=== PATIENT | male | born 1950 | race African-American/Black ===

== ENCOUNTER 2018-06-06 16:38 | Inpatient (IN) | payer MEDICARE, MEDICAID ==
[~2018-06-06] VITALS: Ht 180.3 cm; Wt 68.0 kg
[~2018-06-06 16:38] MED LIST: CARB300C6 PO; DILANTIN; LOPE2TAB26 PO; NAPR-679 PO; PHEN100C12 PO
[2018-06-06 17:51] LABS: BASOPHILS % 0.7 % (0.0-2.0); EOSINOPHILS % 4.5 % (0.0-5.0); HEMATOCRIT. 48.1 % (42.0-52.0); HEMOGLOBIN. 16.4 g/dL (14.0-18.0); LYMPHOCYTES % 19.2 % (20.0-50.0); MEAN CORPUSCULAR HEMOGLOBIN 32.3 pg (28.0-32.0); MEAN CORPUSCULAR VOLUME 94.6 fL (80.0-94.0); MEAN PLATELET VOLUME 8.9 fl (7.4-10.4); MONOCYTES % 12.3 % (2.0-8.0); NEUTROPHILS % 63.3 % (40.0-76.0); PLATELET 207 x1000/uL (130-400); RED BLOOD CELL COUNT 5.09 mill/uL (4.7-6.1); RED CELL DISTRIBUTION WIDTH 13.4 % (11.6-14.6)
[2018-06-06 17:57] LABS: CHLORIDE 108 mEq/L (98-107)
[2018-06-06] MEDS ORDERED: ASPIRIN 81MG TABLET PO ONE (18:30)
[2018-06-06] MEDS ORDERED: ENOXAPARIN 80MG/0.8ML SYR SUBCUT ONE (18:30)
[2018-06-06] MEDS ORDERED: CLONIDINE 0.1MG TABLET PO PRN (20:15)
[2018-06-06] MEDS ORDERED: DOCUSATE SODIUM 100MG CAPSULE PO PRN (20:15)
[2018-06-06] MEDS ORDERED: MAGNESIUM/ALUMINUM HYDROXIDE/SIMETHICONE 30ML UDC PO PRN (20:15)
[2018-06-06] MEDS ORDERED: IPRATROPIUM/ALBUTEROL 0.5-3(2.5)MG/3ML NEB INH PRN (20:15)
[2018-06-06] MEDS ORDERED: ONDANSETRON HCL 4MG/2ML INJ IV PRN (20:15)
[2018-06-06] MEDS ORDERED: ACETAMINOPHEN 325MG TABLET PO PRN (20:15)
[2018-06-06 23:46] VITALS: BP 130/70
[2018-06-07 01:05] LABS: CHLORIDE 107 mEq/L (98-107)
[2018-06-07 01:16] LABS: CREATINE KINASE 235 IU/L (39-308)
[2018-06-07 01:18] LABS: CREATINE KINASE MB FRACTION 4.7 ng/mL (0.5-3.6)
[2018-06-07 01:27] LABS: CARBAMAZEPINE < 0.5 ug/mL (4-12)
[2018-06-07 05:39] LABS: BASOPHILS % 1.2 % (0.0-2.0); HEMATOCRIT. 46.5 % (42.0-52.0); MEAN CORPUSCULAR HEMOGLOBIN 32.5 pg (28.0-32.0); MEAN CORPUSCULAR VOLUME 94.5 fL (80.0-94.0); MEAN PLATELET VOLUME 9.4 fl (7.4-10.4); MONOCYTES % 12.6 % (2.0-8.0); NEUTROPHILS % 51.2 % (40.0-76.0); PLATELET 186 x1000/uL (130-400); RED BLOOD CELL COUNT 4.92 mill/uL (4.7-6.1); RED CELL DISTRIBUTION WIDTH 13.5 % (11.6-14.6)
[2018-06-07] MEDS: ASPIRIN 81MG TABLET PO SCH (08:11)
[2018-06-07 08:45] LABS: CREATINE KINASE 204 IU/L (39-308); HDL CHOLESTEROL 57 mg/dL (40-59)
[2018-06-07 08:46] LABS: LDL CHOLESTEROL 88 mg/dL (5-100)
[2018-06-07 08:51] LABS: CREATINE KINASE MB FRACTION 3.7 ng/mL (0.5-3.6)
[2018-06-07 12:11] VITALS: BP 124/78
[2018-06-07] MEDS ORDERED: PHENYTOIN SODIUM 100MG/2ML VIAL IV ONE (12:30)
[2018-06-07 12:43] LABS: METHADONE URINE SCREEN NEGATIVE (NEGATIVE); OPIATES URINE SCREEN NEGATIVE (NEGATIVE)
[2018-06-07 12:44] LABS: *AMPHETAMINES SCREEN URINE NEGATIVE (NEGATIVE); *BARBITURATES SCREEN URINE NEGATIVE (NEGATIVE); *BENZODIAZEPINES SCREEN URINE NEGATIVE (NEGATIVE); *COCAINE SCREEN URINE NEGATIVE (NEGATIVE); CANNABINOID URINE SCREEN PRESUMTIVE POSITIVE (NEGATIVE); PHENCYCLIDINE URINE SCREEN NEGATIVE (NEGATIVE)
[2018-06-07] MEDS: CARBAMAZEPINE 200MG TABLET PO SCH ×2 (13:04→20:43)
[2018-06-07] MEDS ORDERED: PHENYTOIN SODIUM 1000MG in SODIUM CHLORIDE 0.9% 100ML IV SCH (14:00)
[2018-06-07 16:14] VITALS: BP 135/88
[2018-06-07 20:00] VITALS: BP 129/73
[2018-06-07] MEDS: DILTIAZEM HCL 30MG TABLET PO SCH (21:20)
[2018-06-07] MEDS ORDERED: PHENYTOIN SODIUM EXTENDED 100MG CAPSULE PO NR (22:00)
[2018-06-08 00:01] VITALS: BP 110/74
[2018-06-08 04:00] VITALS: BP 117/71
[2018-06-08] MEDS: DILTIAZEM HCL 30MG TABLET PO SCH (05:48)
[2018-06-08 06:46] LABS: EOSINOPHILS % 4.5 % (0.0-5.0); HEMATOCRIT. 47.5 % (42.0-52.0); HEMOGLOBIN. 16.4 g/dL (14.0-18.0); LYMPHOCYTES % 18.5 % (20.0-50.0); MEAN CORPUSCULAR HEMOGLOBIN 32.6 pg (28.0-32.0); MEAN CORPUSCULAR VOLUME 94.5 fL (80.0-94.0); MEAN PLATELET VOLUME 9.5 fl (7.4-10.4); PLATELET 193 x1000/uL (130-400); RED BLOOD CELL COUNT 5.03 mill/uL (4.7-6.1); RED CELL DISTRIBUTION WIDTH 13.3 % (11.6-14.6)
[2018-06-08 07:39] LABS: CHLORIDE 109 mEq/L (98-107)
[2018-06-08 08:00] VITALS: BP 122/79
[2018-06-08] MEDS: CARBAMAZEPINE 200MG TABLET PO SCH (08:16)
[2018-06-08] MEDS: ASPIRIN 81MG TABLET PO SCH (08:16)
[2018-06-08] MEDS ORDERED: DILTIAZEM HCL 120MG CAPSULE CD 24HR PO SCH (10:00)
[2018-06-08 12:00] VITALS: BP 130/96
[2018-06-08] MEDS ORDERED: NEOMY SULF/BACITRAC ZN/POLY OINT 28GM TOP SCH (14:00)
[2018-06-08 15:53] VITALS: BP 102/59
[2018-06-08 16:00] VITALS: BP 102/59
== END 2018-06-08 17:10 | disposition home or self-care (01) | DRG 201 ==
LOC: ER 18:38 → EDBEDREQ 18:50 → EDBEDREQTM 18:50 → ENRESERV 20:59 → 6WST 06-07 00:37
PROVIDERS: ADMIT Internal Medicine; ATTEND Internal Medicine
DX: I48.91 Unspecified atrial fibrillation (principal); K57.92 Diverticulitis of intestine, part unspecified, without perforation or abscess without bleeding; M94.0 Chondrocostal junction syndrome [Tietze]; K76.9 Liver disease, unspecified; N40.0 Benign prostatic hyperplasia without lower urinary tract symptoms; Y93.89 Activity, other specified; W01.0XXA Fall on same level from slipping, tripping and stumbling without subsequent striking against object, initial encounter; Y92.89 Other specified places as the place of occurrence of the external cause; Z87.891 Personal history of nicotine dependence; Z87.820 Personal history of traumatic brain injury; Y99.8 Other external cause status
CPT/HCPCS: 36415; 71045; 80048; 80061; 80156; 80185; 80305; 82550; 82553; 83036; 83735; 83880; 84134; 84153; 84443; 84484; 85379; 93005; 93306; 93970; 96372; 99285; C1893; J1165; J1650; J7040; J7050; G0103

== ENCOUNTER 2023-10-06 10:24 | Emergency (ER) | payer MEDICARE, MEDICAID ==
[~2023-10-06] VITALS: Ht 177.8 cm; Wt 70.0 kg
[~2023-10-06 10:24] MED LIST changes: -CARB300C6 PO; +CARB300C9 PO
[2023-10-06 10:33] VITALS: O2SAT 99
[2023-10-06 15:18] VITALS: BP 133/72; PULSE 100; RESP 20; TEMP 98.1
== END 2023-10-06 15:37 | disposition home or self-care (01) ==
LOC: ER 10:24
DX: M25.522 Pain in left elbow (principal)
CPT/HCPCS: 73080; 99283